=== PATIENT | female | born 1975 | race African-American/Black ===

== ENCOUNTER 2017-02-27 10:23 | Emergency (ER) | payer BC ==
[~2017-02-27] VITALS: Ht 165.1 cm; Wt 80.0 kg
[2017-02-27 11:22] LABS: HEMATOCRIT 27.5 % (37.0-47.0); HEMOGLOBIN 7.6 g/dl (12.0-16.0); IMMATURE GRANULOCYTES 0.2 % (0.0-1.0); MEAN CELL VOLUME 61.2 fL CALC (80.0-100.0); MEAN CORPUSCULAR HGB 16.9 pG CALC (26.0-32.0); MEAN CORPUSCULAR HGB CONC 27.6 g/L CALC (32.0-36.0); NEUT# 4.32 thou/uL (2.00-7.15); RED BLOOD COUNT 4.49 mill/uL (4.20-5.60); RED CELL DISTRI WIDTH 18.5 % (11.5-15.5)
[2017-02-27 11:38] LABS: ALBUMIN 4.3 g/dL (3.2-5.0); ALKALINE PHOSPHATASE 57 u/l (38-126); ANION GAP 15 (6-22 (CALC)); BILIRUBIN, TOTAL 0.3 mg/dL (0.0-1.4); BUN 14 mg/dL (7-17); BUN/CREATININE RATIO 13 (12-20 (CALC)); CALCIUM 9.4 mg/dL (8.4-10.2); CARBON DIOXIDE 23 mmol/l (22-30); CHLORIDE 104 mmol/l (95-108); CREATININE 1.1 mg/dL (0.5-1.0); GFR 55 ML/MIN (>=60 (CALC)); GFR FOR AFR.AMER. > 60 ML/MIN (>=60 (CALC)); GLUCOSE 86 mg/dL (65-105); SGOT/AST 33 u/l (14-36); SGPT/ALT 42 u/l (9-52); SODIUM 138 mmol/l (137-146); TOTAL PROTEIN 7.7 g/dL (6.3-8.2)
[2017-02-27] MEDS ORDERED: IRON256 MG PO (11:51)
[2017-02-27 12:26] VITALS: BP 135/78
== END 2017-02-27 12:29 | disposition home or self-care (01) | DRG 812 ==
LOC: ED 10:23
PROVIDERS: Emergency Medicine
DX: D64.9 Anemia, unspecified (principal); Z91.14 Patient's other noncompliance with medication regimen